=== PATIENT | female | born 1935 | race American Indian/Alaskan Native ===

== ENCOUNTER 2021-11-25 16:17 | Emergency (ER) | payer MEDICARE ==
--- NOTE | 2021-11-25 23:32 | Emergency Department Report ---
HPI - General Chief Complaint: Psych Time Seen by Provider: 11/25/21 23:14 - HPI HPI: MSE 1 The patient is an 85-year-old female present with a chief complaint of auditory hallucinations and paranoia. The patient's daughter states she was told by the primary physician to bring the patient to the emergency department for evaluation after the patient stated she did not feel safe at home. The daughter reports over the past month the patient has had intermittent auditory hallucinations but they have increased in frequency over the past 3 weeks. The daughter reports the patient complains of not feeling safe at home feels as though someone is coming to kill her and blowup the house. The patient has had difficulty sleeping and admits to auditory hallucinations stating that she is hearing voices telling her something is going to hurt her. The patient admits to auditory hallucinations with voices that sound like family members saying things such as "help me help me!" and that she is not wanted and needs to leave. The daughter states the patient use a razor blade to cut her right wrist sometime last week. The patient was taken to [facility] and started on mirtazapine after being diagnosed with depression. The daughter stat es the patient had a negative CT head performed at [facility]. The patient took the mirtazapine for approximately 2 days and then refused further medication ED Past Medical Hx - Past Medical History Previous Medical History?: Yes Hx Hypertension: Yes Hx GERD: Yes Hx Arthritis: Yes Hx Headaches / Migraines: Yes - Surgical History Past Surgical History?: Yes Hx Appendectomy: Yes - Family History Family history: no significant - Social History Smoking Status: Never Smoker Substance Use Type: None (Denies illicit drug use) - Medications Home Medications: Home Medications Medication Instructions Recorded Confirmed Last Taken Type Amitriptyline [Elavil] 100 mg PO QPM 05/12/14 05/12/14 05/11/14 21:00 History Benazepril HCl 40 mg PO DAILY 05/12/14 05/12/14 05/11/14 19:00 History Cholecalciferol (Vitamin D3) 5,000 units PO DAILY 05/12/14 05/12/14 05/11/14 History [Vitamin D3] amLODIPine 5 mg PO DAILY 05/12/14 05/12/14 05/11/14 19:00 History hydroCHLOROthiazide 12.5 mg PO DAILY 05/12/14 05/12/14 05/11/14 History [Hydrochlorothiazide] ED Review of Systems ROS: Stated complaint: HEARING VOICES Other details as noted in HPI Constitutional: no symptoms reported Eyes: denies: eye pain ENT: denies: throat pain Respiratory: no symptoms reported Cardiovascular: denies: chest pain Endocrine: no symptoms reported Gastrointestinal: denies: abdominal pain Genitourinary: denies: dysuria Musculoskeletal: denies: back pain Psychiatric: auditory hallucinations, suicidal thoughts Physical Exam - Physical Exam Vital Signs: Vital Signs 11/25/21 18:36 Temperature 98.6 F Pulse Rate 69 Respiratory 14 Rate Blood Pressure 176/92 O2 Sat by Pulse 97 Oximetry Physical Exam: GENERAL: The patient is well-developed well-nourished female sitting in chair not appearing to be in acute distress. [] HEENT: Normocephalic. Atraumatic. Extraocular motions are intact. Patient has moist mucous membranes. NECK: Supple. Trachea midline CHEST/LUNGS: Clear to auscultation. There is no respiratory distress noted. HEART/CARDIOVASCULAR: Regular. There is no tachycardia. There is no gallop rub or murmur. ABDOMEN: Abdomen is soft, nontender. Patient has normal bowel sounds. There is no abdominal distention. SKIN: There is no rash. There is no edema. There is no diaphoresis. NEURO: The patient is awake and alert. The patient is cooperative. The patient has no focal neurologic deficits. The patient has normal speech. GCS 15 MUSCULOSKELETAL: There is no evidence of acute injury. ED Course Vital Signs 11/25/21 18:36 Temperature 98.6 F Pulse Rate 69 Respiratory 14 Rate Blood Pressure 176/92 O2 Sat by Pulse 97 Oximetry ED Medical Decision Making - Lab Data Result diagrams: 11/25/21 23:42 11/25/21 23:42 - Differential Diagnosis Dementia, psychosis NOS Critical care attestation.: If time is entered above; I have spent that time in minutes in the direct care of this critically ill patient, excluding procedure time. ED Disposition Clinical Impression: Auditory hallucinations Disposition: [facility] Is pt being admited?: No Does the pt Need Aspirin: No Condition: Stable Referrals: ROBERT JEAN MD [Primary Care Provider] - 3-5 Days
[2021-11-25 23:58] LABS: Basophils % (Auto) 0.4 % (0.0-1.8); Eosinophils # (Auto) 0.1 K/mm3 (0.0-0.4); Eosinophils % (Auto) 1.8 % (0.0-4.3); Hematocrit 38.8 % (30.3-42.9); Hemoglobin 12.6 gm/dl (10.1-14.3); Lymphocytes # (Auto) 2.2 K/mm3 (1.2-5.4); Lymphocytes % (Auto) 33.3 % (13.4-35.0); Mean Corpuscular HGB Conc 33 % (30-34); Mean Corpuscular Volume 83 fl (79-97); Monocytes # (Auto) 0.6 K/mm3 (0.0-0.8); Monocytes % (Auto) 9.6 % (0.0-7.3); Platelet Count 270 K/mm3 (140-440); Red Blood Count 4.69 M/mm3 (3.65-5.03); Red Cell Distribution Width 15.4 % (13.2-15.2)
[2021-11-26 00:16] LABS: Calcium 9.4 mg/dL (8.4-10.2)
--- NOTE | 2021-11-26 11:09 | Consultation ---
History of Present Illness - Reason for Consult Consult date: 11/26/21 Reason for consult: mental health evaluation - History of Present Psychiatric Illness ED Note: The patient is an 85-year-old female present with a chief complaint of auditory hallucinations and paranoia. The patient's daughter states she was told by the primary physician to bring the patient to the emergency department for evaluation after the patient stated she did not feel safe at home. The daughter reports over the past month the patient has had intermittent auditory hallucinations but they have increased in frequency over the past 3 weeks. The daughter reports the patient complains of not feeling safe at home feels as though someone is coming to kill her and blowup the house. The patient has had difficulty sleeping and admits to auditory hallucinations stating that she is hearing voices telling her something is going to hurt her. The patient admits to auditory hallucinations with voices that sound like family members saying things such as "help me help me!" and that she is not wanted and needs to leave. The daughter states the patient use a razor blade to cut her right wrist sometime last week. The patient was taken to [facility] and started on mirtazapine after being diagnosed with depression. The daughter states the patient had a negative CT head performed at [facility]. The patient took the mirtazapine for approximately 2 days and then refused further medication The patient is an 85 year old female with history of Dementia. In my interview with the patient she is alert and orient x2. The patient is calm but confused not sure why she was brought to the ED. She denies SI//HI/AVHs PAST PSYCHIATRIC HISTORY PAST MEDICAL HISTORY: Family Psychiatric History: Not available SOCIAL HISTORY REVIEW OF SYSTEMS MENTAL STATUS EXAMINATION Assessment and Plan (1)Hx Depression Current Visit: Yes Status: Acute RECOMMENDATIONS 1013 continue home meds. Start Seroquel 25mg po BID Start Seroquel 50mg po QHS Risks, benefits and alternatives of medications discussed with the patient, questions answered and consent obtained from patient. PSYCHOTHERAPY: Supportive psychotherapy provided MEDICAL: Per primary team DELIRIUM PRECAUTIONS: Please re-orient patient frequently, keep lights on during the day, and minimize benzodiazepines and opiates as these medications could worsen patient's confusion. 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 FOLLOW-UP: Will follow. Thank you for the consult. Please contact with any questions and/or concerns. Medications and Allergies Medications and Allergies Allergies Allergy/AdvReac Type Severity Reaction Status Date / Time aspirin AdvReac Vomiting Verified 11/25/21 18:42 Home Medications Medication Instructions Recorded Confirmed Last Taken Type Amitriptyline [Elavil] 100 mg PO QPM 05/12/14 05/12/14 05/11/14 21:00 History Benazepril HCl 40 mg PO DAILY 05/12/14 05/12/14 05/11/14 19:00 History Cholecalciferol (Vitamin D3) 5,000 units PO DAILY 05/12/14 05/12/14 05/11/14 History [Vitamin D3] amLODIPine 5 mg PO DAILY 05/12/14 05/12/14 05/11/14 19:00 History hydroCHLOROthiazide 12.5 mg PO DAILY 05/12/14 05/12/14 05/11/14 History [Hydrochlorothiazide] Mental Status Exam - Vital signs Last Vital Signs Temp 98.5 F 11/26/21 08:47 Pulse 78 11/26/21 08:47 Resp 18 11/26/21 08:47 BP 148/81 11/26/21 08:47 Pulse Ox 98 11/26/21 08:47 Results Result Diagrams: 11/25/21 23:42 11/25/21 23:42 Abnormal lab results 11/25/21 11/25/21 11/25/21 Range/Units 23:42 23:42 23:42 MCH 27 L (28-32) pg RDW 15.4 H (13.2-15.2) % Callahan % (Auto) 9.6 H (0.0-7.3) % Chloride 108.6 H (98-107) mmol/L BUN 22 H (7-17) mg/dL Salicylates < 0.3 L (2.8-20.0) mg/dL Acetaminophen (10.0-30.0) ug/mL 11/25/21 Range/Units 23:42 MCH (28-32) pg RDW (13.2-15.2) % Callahan % (Auto) (0.0-7.3) % Chloride (98-107) mmol/L BUN (7-17) mg/dL Salicylates (2.8-20.0) mg/dL Acetaminophen 5.0 L (10.0-30.0) ug/mL All other labs normal.
[2021-11-27 09:23] VITALS: BP 122/87
--- NOTE | 2021-11-27 11:05 | Progress Note ---
Subjective - Reason for Consult Consult date: 11/27/21 Reason for consult: Mental health evaluation - Chief Complaint Chief complaint: The patient was seen this morning. She is calm, alert and oriented x2. The patient reports doing well. No aggressive behaviors reported. PAST PSYCHIATRIC HISTORY PAST MEDICAL HISTORY: Family Psychiatric History: Not available SOCIAL HISTORY REVIEW OF SYSTEMS MENTAL STATUS EXAMINATION Assessment and Plan (1)Hx Dementia Current Visit: Yes Status: Acute RECOMMENDATIONS DC 1013 continue home meds. Risks, benefits and alternatives of medications discussed with the patient, questions answered and consent obtained from patient. PSYCHOTHERAPY: Supportive psychotherapy provided MEDICAL: Per primary team DELIRIUM PRECAUTIONS: Please re-orient patient frequently, keep lights on during the day, and minimize benzodiazepines and opiates as these medications could worsen patient's confusion. 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 Insurance Underwriting Assistant will provide patient with out patient resources. FOLLOW-UP: sign off. Thank you for the consult. Please contact with any questions and/or concerns. Medications and Allergies Mental Status Exam - Vital signs Last Vital Signs Temp 97.8 F 11/27/21 09:22 Pulse 155 H 11/27/21 09:22 Resp 18 11/27/21 09:22 BP 122/87 11/27/21 09:22 Pulse Ox 96 11/27/21 10:17
--- NOTE | 2021-11-27 13:11 | Event Note ---
Patient cleared for discharge according to mental health scullion chief.
== END 2021-11-27 16:07 | disposition home or self-care (01) ==
LOC: ED 16:17
DX: R44.0 Auditory hallucinations (principal); I10 Essential (primary) hypertension; K21.9 Gastro-esophageal reflux disease without esophagitis; M19.90 Unspecified osteoarthritis, unspecified site; G43.909 Migraine, unspecified, not intractable, without status migrainosus; Z90.49 Acquired absence of other specified parts of digestive tract; Z88.8 Allergy status to other drugs, medicaments and biological substances; Z20.822 Contact with and (suspected) exposure to COVID-19
CPT/HCPCS: 36415; 80048; 85025; 99284; U0003; 80320; G0480